=== PATIENT | male | born 1935 | race Caucasian/White ===

== ENCOUNTER 2020-06-26 07:22 | Emergency (ER) | payer SELFPAY | END 2020-06-26 07:34 | LOC: ER 07:32 | DX: Z53.21 Procedure and treatment not carried out due to patient leaving prior to being seen by health care provider (principal) ==

== ENCOUNTER 2024-03-31 15:58 | Observation (INO) | payer MEDICARE, OTHER, SELFPAY ==
[2024-03-31] VITALS (61 sets, daily range): BP systolic 114–188; BP diastolic 38–148; PULSE 51–88; RESP 9–33; TEMP 36.3–36.8; O2SAT 82–100
--- NOTE | 2024-03-31 15:45 | DI.CT_ITS ---
Exam(s) CT ABDOMEN PELVIS CTA EXAM: CT ABDOMEN PELVIS CTA CLINICAL HISTORY: ? mesenteric ischemia, ? incarce/rafael hernia. TECHNIQUE: Imaging Protocol: Axial CT angiography was performed with multi-slice acquisition and m ulti-planar and/or 3D reconstructions. CONTRAST MATERIAL: Intravenous: Omnipaque 350 Contrast volume:struc 80 ml Oral: no COMPARISON: No exams were available for comparison FINDINGS: Exam is limited by streak artifact relation to patient arm positioning at the sides. Vascular Structures: Celiac [place]:No evidence of stenosis. SMA: No evidence of stenosis. PADMA: Patent. Renal Arteries: No evidence of stenosis. There is a single renal artery perfusing each kidney. Aorta: No aneurysm. No dissection. No significant stenosis. Moderate to severe atherosclerotic plascencia ges. Mild mural thrombus. Iliac Arteries: Heavily calcified but no significant stenosis. Common Femoral Arteries: Multifocal calcifications. No significant stenosis. Soft Tissues:8 x 6.3 by 4.3 centimeter soft tissue mass noted in the lower right anterior abdominal w all musculature. It may arise from the anterior aspect of the bladder or musculature. Small fat conta ining left inguinal hernia. Right inguinal hernia containing but appears to be the appendix. Lung bases:Mass noted in the lingula measuring 2.6 x 2.1 cm. Dependent changes. Emphysematous herrera es. Pacemaker. Liver: Normal size. Normal density. Two liver cysts. No suspicious mass. Gallbladder and biliary tract: A few calcified gallstones are noted. No gallbladder wall thickening. No biliary dilation. Pancreas: Normal density, no abnormal calcifications or inflammatory process. Spleen: Normal. Kidneys: Normal size, contour and axis. No obstructive uropathy. Bilateral renal cysts. No suspicio us masses seen. Of few scattered nonobstructing stones. Adrenal glands: No masses seen. Bladder: Large invasive appearing mass which either arises from the anterior aspect of the bladder a nd extends into the rectus muscle. No evidence of calculi. Bowel: Loop of bowel through a defect between the right rectus abdominus and oblique muscles near the level of the umbilicus. This appears incarcerated. There is proximal dilatation of the small bowel a nd decompression of distal bowel loops. Peritoneal cavity: No ascites. No focal collection. No mesenteric inflammatory response. Bones: No acute findings. Degenerative changes and mild scoliosis. Lymph nodes: Mildly enlarged bilateral inguinal lymph nodes. Reproductive: Enlarged prostate, impressing on the base of the bladder. IMPRESSION: 1. Right size spigelian hernia with small knuckle of bowel extending through abdominal wall musculatu re causing small bowel obstruction. It appears incarcerated. 2. Large mass extending from the right rectus abdominus to the level of the anterior bladder with inv asive appearance. Origin is either much of mid meta metastatic, bladder wall or musculature. 3. 2.6 centimeter mass in the lingula. Primary versus metastatic disease. Findings called to Dr. Lopez of the emergency department. RADIATION DOSE DELIVERED: Total DLP DATA REPOSITORY: All CT scans at this facility are submitted to the National Radiology Data Registry (NRDR) Dose Index Registry (DIR) with the [employer] (ACR). RADIATION OPTIMIZATION: All CT scans at this facility use at least one of these dose optimization te chniques: automated exposure control; mA and/or kV adjustment per patient size (includes targeted exa ms where dose is matched to clinical indication); or iterative reconstruction.
[2024-03-31] MEDS: fentaNYL 100 MCG/2 ML VIAL IVP ×5 (16:06→18:04)
[2024-03-31 16:18] LABS: BE (Venous) -1 mmol/L (-2-3); HCO3 (Venous) 26 mmol/L (23-28); O2 Sat (Venous) 39 %; TCO2 (Venous) 25 mmol/L (24-29); pCO2 (Venous) 55 mmHg (41-51); pH (Venous) 7.28 (7.31-7.41); pO2 (Venous) 25 mmHg
[2024-03-31 16:22] LABS: Abs Immature Grans 0.01 10^3/uL (0.0-0.06); Absolute Basophil Count 0.03 10^3/uL (0.0-0.2); Absolute Eosinophil Count 0.15 10^3/uL (0.0-0.7); Absolute Monocyte Count 0.72 10^3/uL (0.1-0.8); Absolute Neutrophil Count 3.56 10^3/uL (1.2-6.7); Basophils % 0.4 %; Eosinophils % 2.1 %; HCT 35.8 % (40.0-50.0); HGB 11.3 g/dL (13.5-17.5); Immature Grans % 0.1 %; Lymphocytes % 36.8 %; MCH 32.8 pg (27.0-33.0); MCHC 31.6 % (32.0-36.0); MCV 104 fL (80-95); MPV 9.9 fL (8.0-11.0); Monocytes % 10.2 %; Neutrophils % 50.4 %; Platelet Count 237 10^3/uL (130-400); RBC 3.44 10^6/uL (4.36-5.78); RDW-SD 54.4 fL; WBC 7.07 10^3/uL (4.4-10.8)
[2024-03-31 16:27] LABS: Lactate 3.2 mmol/L (0.6-1.4)
[2024-03-31 16:41] LABS: ALT 16 U/L (16-63); AST 18 U/L (15-37); Albumin 3.5 g/dL (3.4-5.0); Alkaline Phosphatase 92 U/L (46-116); Anion Gap 9.6 mmol/L (3-11); BUN 18 mg/dL (7-18); Bilirubin, Total 0.56 mg/dL (0.2-1.0); CO2 27.4 mmol/L (21.0-32.0); CREATININE 1.5 mg/dL (0.70-1.30); Chloride 105 mmol/L (98-107); Estimated GFR 45.06 (mL/min/1.73m2); Glucose 178 mg/dL (74-106); Lipase 16 U/L (<78); Magnesium 1.8 mg/dL (1.8-2.4); Potassium 4.5 mmol/L (3.5-5.1); Sodium 142 mmol/L (136-145); Total Protein 7.5 g/dL (6.4-8.2)
[2024-03-31] MEDS: Normal Saline - Diluent 50 ML VIAL IJ (16:46)
[2024-03-31] MEDS: Omnipaque 350 MG/ML 100 ML BTL IJ (16:47)
[2024-03-31] MEDS: fentaNYL 100 MCG/2 ML VIAL 50 MCG IVP (17:09)
--- NOTE | 2024-03-31 17:13 | DI.VRAD_ITS ---
PROCEDURE INFORMATION: Exam: CTA Abdomen and Pelvis With Contrast Exam date and time: 03/31/2024 4:28 PM Age: 88 years old Clinical indication: Other: ? Mesenteric ischemia, ? incarce/rafael hernia; Patient HX: Known mets TECHNIQUE: Imaging protocol: Computed tomographic angiography of the abdomen and pelvis with contrast. Exam focused on the arteries. 3D rendering (Not supervised by radiologist): MIP and/or 3D reconstructed images were created by the technologist. Contrast material: OMNIPAQUE 350; Contrast volume: 80 ml; Contrast route: INTRAVENOUS (IV); COMPARISON: No relevant prior studies available. FINDINGS: Lungs: 3 cm microlobulated soft tissue mass in the lingula. Mild changes of emphysema and atelectasis noted in the bilateral lower lobes. Aorta: Dense atherosclerotic calcification noted in the aorta and iliac arteries. No evidence of aneurysm or dissection. Celiac trunk and mesenteric arteries: No occlusion or significant stenosis. Renal arteries: No occlusion or significant stenosis. Right iliac arteries: No occlusion or significant stenosis. Left iliac arteries: No occlusion or significant stenosis. Liver: A few scattered simple appearing cysts noted in the liver, the largest measuring 2.5 cm in the central portion of the liver. Liver otherwise unremarkable. Gallbladder and biliary ducts: A few small calcified gallstones noted in the gallbladder. No gallbladder wall thickening or pericholecystic fluid. No biliary ductal dilation. Pancreas: Unremarkable. No mass. No ductal dilation. Spleen: Unremarkable. No splenomegaly. Adrenal glands: Unremarkable. No mass. Kidneys and ureters: Scattered simple appearing cysts noted in both kidneys. No solid renal mass or hydronephrosis. Stomach and bowel: A few fluid-filled small bowel loops in the pelvis appear mildly dilated. Bowel-gas pattern otherwise unremarkable. No convincing evidence of bowel obstruction. Appendix: No evidence of appendicitis. Intraperitoneal space: Unremarkable. No free air. No significant fluid collection. Lymph nodes: Unremarkable. No enlarged lymph nodes. Urinary bladder: Homogeneous soft tissue mass is seen extending from the dome of the urinary bladder anterior into the lower rectus abdominis muscle sheath. Overall, this mass measures 6.4 x 6.3 x 4.7 cm. Adjacent localized wall thickening of the dome of the urinary bladder noted. 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 Reproductive: Unremarkable as visualized. Bones/joints: Moderate multilevel degenerative disc changes and facet arthropathy throughout the lower spine. No vertebral body compression. No acute fracture. Mild dextroscoliosis of the lumbar spine. Soft tissues: Otherwise unremarkable IMPRESSION: 1. Soft tissue mass measuring 6.4 cm extending from the anterior dome of the urinary bladder into the lower rectus abdominis muscle sheath. 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 Lingular 3 cm mass noted in the lower left lung. Given findings in the pelvis concerning for urachal carcinoma, this raises concern for metastatic lesion 3. Mild ileus pattern of small bowel in the pelvis. No convincing evidence of bowel obstruction 4. Incidentally noted cholelithiasis and other chronic appearing findings as noted Dictated and Authenticated by: Roberto Carrillo MD. Ordering:BARBARA Ybarra MD
--- NOTE | 2024-03-31 17:58 | W.ED.GENAD ---
Discharge Plan Disposition Patient Disposition: Admit to [facility] Condition: Improving Discharge Details Chief Complaint: Abd Prob Clinical Impression: Spigelian hernia Admit Date/Time: 03/31/24 19:46 Admit Provider: Erin Marr Attending Provider: Erin Marr Primary Care Provider: John Salazar ED Provider: Amada Lopez Discharge Data Discharge Date/Time-TO BE ENTERED AT DEPARTURE: 03/31/24 21:27 HPI General Mode of arrival: EMS. Date/Time Provider Initiated Documentation: 03/31/24 16:08. Limitations to Documentation: no limitations. Information obtained by: patient, family, EMS and old records reviewed. HPI Narrative: 88yo M with recently diagnosed lung cancer and bladder mass, known abdominal hernia, presenting with acute severe abdominal pain. Around 230 pm suddenly experienced sharp excruciating pain with associated nausea and vomiting. Initial history from EMS, no history able to be obtained from patient as he is moaning in pain. EMS unable to obtain BP or IV access prior to arrival due to patient's pain/agitation. Hx DM, HLD, known to have AICD (unclear why); palliative care note (only record available at [facility]) from earlier this week mentions 'arrhythmia'. Related Data Home Medications ?Medication ?Instructions ?Recorded ?Confirmed citalopram 10 mg tablet 10 mg PO DAILY PRN 03/28/24 03/31/24 ezetimibe 10 mg tablet 10 mg PO DAILY 03/28/24 03/31/24 furosemide 20 mg tablet 20 mg PO DAILY 03/28/24 03/31/24 glyburide 2.5 mg tablet 2.5 mg PO DAILY 03/28/24 03/31/24 metformin 1,000 mg tablet 1,000 mg PO DAILY 03/28/24 03/31/24 ondansetron HCl 4 mg tablet 8 mg PO Q8H PRN 03/28/24 03/31/24 sacubitril 24 mg-valsartan 26 mg 1 tab PO BID 03/28/24 03/31/24 tablet (Entresto) trazodone 100 mg tablet 100 mg PO BID 03/28/24 03/31/24 fentanyl 12 mcg/hr transdermal 1 patch transdermal Q72H #10 ea 03/29/24 03/31/24 patch gabapentin 400 mg capsule 300 mg PO TID 03/29/24 03/31/24 sennosides 8.6 mg tablet (senna) 8.6 - 17.2 mg (1 - 2 x 8.6 mg) PO 03/29/24 03/31/24 BID PRN constipation #60 tabs hydrocodone 5 mg-acetaminophen 325 1 tab PO Q6H PRN 03/31/24 03/31/24 mg tablet hydromorphone 2 mg tablet 2 mg PO HS PRN pain 03/31/24 03/31/24 oxycodone-acetaminophen 10 mg-325 1 tab PO .Q4-6H PRN 03/31/24 03/31/24 mg tablet Previous Rx's ?Medication ?Instructions ?Recorded fentanyl 12 mcg/hr transdermal 1 patch transdermal Q72H #10 ea 03/29/24 patch sennosides 8.6 mg tablet (senna) 8.6 - 17.2 mg (1 - 2 x 8.6 mg) PO 03/29/24 BID PRN constipation #60 tabs Allergies Allergy/AdvReac Type Severity Reaction Status Date / Time ciprofloxacin Allergy Headache Verified 03/31/24 16:15 General Stated Complaint: Abd Prob AMOR: 3 Review of Systems Narrative: UTO Exam Narrative Exam Narrative: General: Alert, screaming Head: Normocephalic, atraumatic Neck: Trachea midline, ?Neck supple. ENT: ?MMM.? Cardiac: ?RRR, no murmurs appreciated Resp: No respiratory distress. CTAB. Abd: ?Tense, guarding, will not allow exam. Slight erythema to right lateral abdomen and over right lateral chest wall, otherwise no skin changes. Extremities: ?No deformities.? No peripheral edema. Neurologic: Moves all extremities freely against gravity Course Vital Signs Vital signs: Vital Signs Temperature 36.8 C 03/31/24 15:51 Pulse 68 03/31/24 15:51 Respiratory Rate 22 03/31/24 15:51 Blood Pressure 169/89 H 03/31/24 15:51 Pulse Oximetry 98 03/31/24 15:51 Temperature 36.8 C 03/31/24 16:09 Temperature Source Temporal Artery Scan 03/31/24 16:09 Pulse 61 03/31/24 17:30 Pulse 69 03/31/24 16:50 Respiratory Rate 33 H 03/31/24 16:50 Respiratory Effort Normal 03/31/24 16:11 Blood Pressure 141/44 H 03/31/24 17:30 Blood Pressure Mean 77 03/31/24 17:30 Blood Pressure Position Supine 03/31/24 16:09 Pulse Oximetry 88 L 03/31/24 17:31 Oxygen Delivery Method Room Air 03/31/24 16:09 Oxygen Flow Rate 0 03/31/24 15:51 Pain Level 10 03/31/24 16:19 Lab/Test Results Lab/Test Results: Laboratory Tests Range/Units 03/31/24 16:08 WBC (4.4-10.8) 10^3/uL 7.07 RBC (4.36-5.78) 10^6/uL 3.44 L Hgb (13.5-17.5) g/dL 11.3 L Hct (40.0-50.0) % 35.8 L MCV (80-95) fL 104 H MCH (27.0-33.0) pg 32.8 MCHC (32.0-36.0) % 31.6 L RDW (11.8-14.1) % 14.0 Plt Count (130-400) 10^3/uL 237 MPV (8.0-11.0) fL 9.9 Immature Gran % % 0.1 Neutrophils % % 50.4 Lymphocytes % % 36.8 Monocytes % % 10.2 Eosinophils % % 2.1 Basophils % % 0.4 Nucleated RBC % (0.0-0.3) % 0.0 Absolute Neutrophils (1.2-6.7) 10^3/uL 3.56 Absolute Lymphocytes (1.2-3.4) 10^3/uL 2.60 Absolute Monocytes (0.1-0.8) 10^3/uL 0.72 Absolute Eosinophils (0.0-0.7) 10^3/uL 0.15 Absolute Basophils (0.0-0.2) 10^3/uL 0.03 VBG pH (7.31-7.41) 7.28 L VBG pCO2 (41-51) mmHg 55 H VBG pO2 mmHg 25 VBG HCO3 (23-28) mmol/L 26 VBG Total CO2 (24-29) mmol/L 25 VBG O2 Saturation % 39 VBG Base Excess (-2-3) mmol/L -1 VBG Lactate (0.6-1.4) mmol/L 3.2 H* Sodium (136-145) mmol/L 142 Potassium (3.5-5.1) mmol/L 4.5 Chloride (98-107) mmol/L 105 Carbon Dioxide (21.0-32.0) mmol/L 27.4 Anion Gap (3-11) mmol/L 9.6 BUN (7-18) mg/dL 18 Creatinine (0.70-1.30) mg/dL 1.5 H Est GFR (CKD-EPI 2020) (mL/min/1.73m2) 45.06 Glucose (74-106) mg/dL 178 H Calcium (8.5-10.1) mg/dL 9.0 Magnesium (1.8-2.4) mg/dL 1.8 Total Bilirubin (0.2-1.0) mg/dL 0.56 AST (15-37) U/L 18 ALT (16-63) U/L 16 Alkaline Phosphatase (46-116) U/L 92 Total Protein (6.4-8.2) g/dL 7.5 Albumin (3.4-5.0) g/dL 3.5 Lipase (<78) U/L 16 ABO/Rh O Positive Antibody Screen NEGATIVE Procedures Procedural Sedation Indication: other (hernia reduction) ASA Class: III Time of Last PO Intake: 12:00 Preparation: quality assurance monitor body applied, pulse oximeter, capnometry used, supplemental O2 applied, suction/airway equipment at bedside and IV secured IV Propofol dose (mg): 70 Patient Tolerated Procedure: well Complications: hypoventilation (jaw thrust, supplemental O2, briefly ventilated with BVM) Interventions: airway repositioned and assist by BVM Medical Decision Making 88yo M with recently diagnosed lung cancer and bladder mass, known abdominal hernia, presenting with acute severe abdominal pain. Around 230 pm suddenly experienced sharp excruciating pain with associated nausea and vomiting. Initial history from EMS, no history able to be obtained from patient as he is moaning in pain. EMS unable to obtain BP or IV access prior to arrival due to patient's pain/agitation. Hx DM, HLD, known to have AICD (unclear why); palliative care note (only record available at [facility]) from earlier this week mentions 'arrhythmia'. Hypertensive on arrival, vital signs otherwise reassuring. Screaming in pain, will not allow abdominal exam. High suspicion for acute intraabdominal process- bowel obstruction, strangulated hernia, mesenteric ischemia, bladder obstruction. IV access obtained and given 100mcg of fentanyl with slight improvement; multiple subsequent additional doses to allow patient to tolerate CT scan and eventually abdominal exam (total of 450mcg fentanyl). He was accompanied to CT by myself and RN for monitoring and additional doses of pain medication as needed. Labs reviewed as below, CBC reassuring with mild anemia and no leukocytosis, CMP with Cr of 1.5 (unknown baseline), normal LFTs and lipase, initial lactate 3.2, VBG with respiratory acidosis pH 7.28 and pCO2 55. Given 1L IVFB; repeat lactate improved to 0.7. CT abd/pelvis independently reviewed; radiology read below with spigelian hernia with small knuckle of bowel extending through abdominal wall musculature causing small bowel obstruction which appears incarcerated. Discussed with surgery on-call Dr. Carpio who will come to evaluate patient. After copious fentanyl pt with diminished pain, able to speak in full sentences, but continues to have spasmodic episodes of excrutiating pain. Now able to tolerate minimal abdominal exam and does have visible/palpable right abdominal wall hernia with no overylying skin changes, extremely tender to palpation over area of hernia, unable to tolerate any attempt at reduction. Dr. Carpio to bedside, plan for attempted reduction under procedural sedation at bedside. IV noted to have infiltrated with likely some amount of fentanyl in the subq space; will do propfol for sedation and given fentanyl infiltrate and high doses given prior will start with 0.5mg IV with additional doses as needed. Pre-op EKG with slight QT prolongation, will proceed with caution with total propofol dose. Given total of 70mg propofol with successful bedside reduction performed by Dr. Carpio; pt did have hypoventilation and required jaw thrust and brief period of BVM. O2 sat 100% throughout. Subsequently recovered well, awake/alert, pain entirely resolved. Accepted to surgical service for observation and transferred to the floor. Medical Records Medical records reviewed: Yes I reviewed the patient's medical records. Imaging Data Radiologic Study: Imaging: CT Scan Radiologist's impression: MPRESSION: 1. Right size spigelian hernia with small knuckle of bowel extending through abdominal wall musculature causing small bowel obstruction. It appears incarcerated. 2. Large mass extending from the right rectus abdominus to the level of the anterior bladder with invasive appearance. Origin is either much of mid meta metastatic, bladder wall or musculature. 3. 2.6 centimeter mass in the lingula. Primary versus metastatic disease. Lab Data Lab results reviewed: Yes I reviewed the patient's lab results. Labs: Laboratory Tests Range/Units 03/31/24 03/31/24 16:08 18:53 WBC (4.4-10.8) 10^3/uL 7.07 RBC (4.36-5.78) 10^6/uL 3.44 L Hgb (13.5-17.5) g/dL 11.3 L Hct (40.0-50.0) % 35.8 L MCV (80-95) fL 104 H MCH (27.0-33.0) pg 32.8 MCHC (32.0-36.0) % 31.6 L RDW (11.8-14.1) % 14.0 Plt Count (130-400) 10^3/uL 237 MPV (8.0-11.0) fL 9.9 Immature Gran % % 0.1 Neutrophils % % 50.4 Lymphocytes % % 36.8 Monocytes % % 10.2 Eosinophils % % 2.1 Basophils % % 0.4 Nucleated RBC % (0.0-0.3) % 0.0 Absolute Neutrophils (1.2-6.7) 10^3/uL 3.56 Absolute Lymphocytes (1.2-3.4) 10^3/uL 2.60 Absolute Monocytes (0.1-0.8) 10^3/uL 0.72 Absolute Eosinophils (0.0-0.7) 10^3/uL 0.15 Absolute Basophils (0.0-0.2) 10^3/uL 0.03 VBG pH (7.31-7.41) 7.28 L VBG pCO2 (41-51) mmHg 55 H VBG pO2 mmHg 25 VBG HCO3 (23-28) mmol/L 26 VBG Total CO2 (24-29) mmol/L 25 VBG O2 Saturation % 39 VBG Base Excess (-2-3) mmol/L -1 VBG Lactate (0.6-1.4) mmol/L 3.2 H* 0.9 Sodium (136-145) mmol/L 142 Potassium (3.5-5.1) mmol/L 4.5 Chloride (98-107) mmol/L 105 Carbon Dioxide (21.0-32.0) mmol/L 27.4 Anion Gap (3-11) mmol/L 9.6 BUN (7-18) mg/dL 18 Creatinine (0.70-1.30) mg/dL 1.5 H Est GFR (CKD-EPI 2020) (mL/min/1.73m2) 45.06 Glucose (74-106) mg/dL 178 H Calcium (8.5-10.1) mg/dL 9.0 Magnesium (1.8-2.4) mg/dL 1.8 Total Bilirubin (0.2-1.0) mg/dL 0.56 AST (15-37) U/L 18 ALT (16-63) U/L 16 Alkaline Phosphatase (46-116) U/L 92 Total Protein (6.4-8.2) g/dL 7.5 Albumin (3.4-5.0) g/dL 3.5 Lipase (<78) U/L 16 ABO/Rh O Positive Antibody Screen NEGATIVE Quality:[facility] Health Related Social Needs: No Data to Display Critical Care Time Critical Care Time Total Critical Care Time: 34 Attestation: Due to a high probability of clinically significant, life threatening deterioration, the patient required my highest level of preparedness to intervene emergently and I personally spent this critical care time directly and personally managing the patient. This critical care time included obtaining a history; examining the patient; pulse oximetry; ordering and review of studies; arranging urgent treatment with development of a management plan; evaluation of patient's response to treatment; frequent reassessment; and, discussions with other providers. This critical care time was performed to assess and manage the high probability of imminent, life-threatening deterioration that could result in multi-organ failure. It was exclusive of separately billable procedures and treating other patients? 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
[2024-03-31] MEDS: Normal Saline 1,000 ML 1000 ML IV (18:11)
[2024-03-31] MEDS: ACETAMINOPHEN 1,000 MG/100 ML BAG 400 MG IVPB (18:16)
--- NOTE | 2024-03-31 18:45 | RT.EKG_ITS ---
APPROVED REPORT Exam: Resting ECG Reason for Exam: pre procedure Patient Location: E HR:65 bpm ECG Measurements Heart Rate 65 AXIS MO 190 P 67 QRSd 95 QRS 42 QT 457 T 55 QTc 475 Conclusion sinus rythym bordlerline prolonged QTc no ST segement or T wave abnormalities to suggest occlusive HI
[2024-03-31 18:56] LABS: Lactate 0.9 mmol/L (0.6-1.4)
[2024-03-31] MEDS: Propofol 200 MG/20 ML VIAL 70 MG IVP (19:14)
--- NOTE | 2024-03-31 19:27 | RESPIRATORY ---
Applied 4L/min nasal prior to procedure and then manual ventilated with ambu bag without complication on oxygen flow of 15L/min to relief a short apnea episode during conscious sedation. Vital sign remained acceptable throughout positive ventilation. O2 weaned down to RA post procedure when pt. became more alert or awake.
--- NOTE | 2024-03-31 19:47 | W.PM.HP.N ---
Date of service: 03/31/24 Time of Service: 20:02 Assessment and Plan Assessment and plan (1) Spigelian hernia: Status: Acute Assessment and plan: 88-year-old male who has a known spigelian hernia. This is the second time in about 2 months that it has become incarcerated with concern for strangulation. Fortunately with propofol sedation administered by the emergency room physician, I was able to reduce the hernia and resolve his pain. Given that it was incarcerated for 5 hours, I have reasonable concern for ischemia of the bowel. I am going to admit the patient to the surgical service for observation overnight just to ensure that he has no changes in his abdominal exam. Plan was explained to the patient and his family and everybody was on board. I do think that it would be reasonable to consider elective repair of the hernia given the 2 complicated episodes that he has had. Given his metastatic disease, this would best be planned after an in-depth conversation about the risks and the benefits, and on an elective basis. Patient and the family expressed understanding. We will try to arrange short-term follow-up. ? Sips of clears tonight, clear liquid diet in a.m. ? IV fluids ? IV pain and nausea medications as needed ? Sliding scale insulin ? Hold home medications for now until taking p.o. ? Monitor vital signs overnight History of Present Illness History of Present Illness Chief Complaint: Right lower quadrant abdominal pain Narrative: Patient is an 88-year-old male who presents to the emergency room. He had sudden onset of abdominal pain in the right side of the abdomen around 2 PM. He reports that he had similar pain about 2 months ago. At that time he went to the emergency room where he was living in [place]. After significant amount of pain they were able to reduce hernia and he was discharged home. Today he is writhing in pain. He has received multiple doses of IV fentanyl without much relief. Labs are remarkable for some anemia with a hemoglobin of 11, elevated lactate of 3.7. White blood cell count is within normal limits. Electrolytes are mostly within normal limits. He had a CT scan of the abdomen that shows an incarcerated loop of bowel and a right spigelian hernia. General surgery was consulted. Of note, patient has diagnosis of bladder cancer, as well as a lung mass. His family reports that he has had 2 urology consultation and has been recommended to move into palliative care. Unclear if he has 2 primaries or if the lung lesion is a metastatic lesion from the bladder. Patient typically resides in [place] but has recently moved back up to [place]. He was at [facility] seeing urology yesterday. He has multiple family members with him today. 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 Surgical History (Updated 03/29/24 @ 14:59 by Kira Logan RN) H/O shoulder replacement History of transurethral resection of bladder tumor (TURBT) 04/07/2023 Social History (Updated 03/29/24 @ 14:59 by Kira Logan RN) Smoking/Tobacco Use Status: Current-Occasional Smoking risk assessment performed?: Yes Alcohol Intake: never Drug use: Never Meds Allergies and Home Medications Allergies Allergy/AdvReac Type Severity Reaction Status Date / Time ciprofloxacin Allergy Headache Verified 03/31/24 16:15 Home Medications ?Medication ?Instructions ?Recorded ?Confirmed ?Type citalopram 10 mg tablet 10 mg PO DAILY PRN 03/28/24 03/31/24 History ezetimibe 10 mg tablet 10 mg PO DAILY 03/28/24 03/31/24 History furosemide 20 mg tablet 20 mg PO DAILY 03/28/24 03/31/24 History glyburide 2.5 mg tablet 2.5 mg PO DAILY 03/28/24 03/31/24 History metformin 1,000 mg tablet 1,000 mg PO DAILY 03/28/24 03/31/24 History ondansetron HCl 4 mg tablet 8 mg PO Q8H PRN 03/28/24 03/31/24 History sacubitril 24 mg-valsartan 26 mg 1 tab PO BID 03/28/24 03/31/24 History tablet (Entresto) trazodone 100 mg tablet 100 mg PO BID 03/28/24 03/31/24 History fentanyl 12 mcg/hr transdermal 1 patch transdermal Q72H #10 ea 03/29/24 03/31/24 Rx patch gabapentin 400 mg capsule 300 mg PO TID 03/29/24 03/31/24 History sennosides 8.6 mg tablet (senna) 8.6 - 17.2 mg (1 - 2 x 8.6 mg) PO 03/29/24 03/31/24 Rx BID PRN constipation #60 tabs hydrocodone 5 mg-acetaminophen 325 1 tab PO Q6H PRN 03/31/24 03/31/24 History mg tablet hydromorphone 2 mg tablet 2 mg PO HS PRN pain 03/31/24 03/31/24 History oxycodone-acetaminophen 10 mg-325 1 tab PO .Q4-6H PRN 03/31/24 03/31/24 History mg tablet Exam Narrative Exam Narrative: General?elderly thin male lying on the emergency room stretcher in significant discomfort. At times he is writhing around in pain. He seems to be alert and oriented. HEENT?normocephalic, atraumatic. Sclera anicteric. Mucous membranes dry. Neck?supple, no masses Respiratory?unlabored, no use of accessory muscles Abdomen?soft, nondistended, but exquisitely tender to palpation over a small lump in the right abdomen just below the level of the umbilicus. Unable to tolerate more than light touch in this area without writhing around in pain and having tremors Extremities?moves all extremities, no gross edema Psych?oriented to place and people in the room, and time. Results Labs 03/31/24 16:08 03/31/24 16:08 Labs: Laboratory Results - last 24 hr 03/31/24 03/31/24 16:08 18:53 WBC 7.07 RBC 3.44 L Hgb 11.3 L Hct 35.8 L MCV 104 H MCH 32.8 MCHC 31.6 L RDW 14.0 Plt Count 237 MPV 9.9 Immature Gran % 0.1 Neutrophils % 50.4 Lymphocytes % 36.8 Monocytes % 10.2 Eosinophils % 2.1 Basophils % 0.4 Nucleated RBC % 0.0 Absolute Neutrophils 3.56 Absolute Lymphocytes 2.60 Absolute Monocytes 0.72 Absolute Eosinophils 0.15 Absolute Basophils 0.03 VBG pH 7.28 L VBG pCO2 55 H VBG pO2 25 VBG HCO3 26 VBG Total CO2 25 VBG O2 Saturation 39 VBG Base Excess -1 VBG Lactate 3.2 H* 0.9 Sodium 142 Potassium 4.5 Chloride 105 Carbon Dioxide 27.4 Anion Gap 9.6 BUN 18 Creatinine 1.5 H Est GFR (CKD-EPI 2020) 45.06 Glucose 178 H Calcium 9.0 Magnesium 1.8 Total Bilirubin 0.56 AST 18 ALT 16 Alkaline Phosphatase 92 Total Protein 7.5 Albumin 3.5 Lipase 16 ABO/Rh O Positive Antibody Screen NEGATIVE Last Vital Signs Temp 36.8 C 03/31/24 16:09 Pulse 60 03/31/24 19:16 Resp 15 03/31/24 19:20 BP 122/62 03/31/24 19:16 Pulse Ox 99 03/31/24 19:20 Procedures Other Procedure Description/Findings: After obtaining informed consent for procedural sedation, propofol was administered by the emergency room physician, Dr. Amada Lopez. Once patient was deeply sedated and comfortable, I was able to palpate the small lump in the right lower abdomen. With only a moderate amount of pressure I was able to reduce the hernia. I then placed the ultrasound and evaluated the abdominal wall in the area to confirm that the hernia had been reduced. I was not able to see any peritoneum bulging into the muscle tissue. As patient began to wake up, I palpated the abdomen again. He did not respond with any signs of discomfort. Once he was completely awake, he confirmed that he no longer had any pain in the right lower abdomen. Time Spent Time spent with Patient: 55-74 minutes Time was spent: preparing to see the patient(eg.review tests), obtaining and/or reviewing separately otained hiistory, ordering medications,tests, procedures, referring, communicating with other health wild animal caretaker, indepentently interpreting results, counseling the patient and care coordination
--- NOTE | 2024-03-31 21:05 | W.PC.ACHO ---
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 Hyperlipidemia Diabetes NSCLC of right lung Pelvic mass Malignant neoplasm metastatic from bladder (Last Updated 03/29/24 @ 14:59 by Kira Logan RN) H/O shoulder replacement History of transurethral resection of bladder tumor (TURBT) Most Recent Vital Signs Temperature 36.8 C 03/31/24 16:09 Temperature Source Temporal Artery Scan 03/31/24 16:09 Pulse 52 L 03/31/24 20:33 Pulse 59 L 03/31/24 20:33 Respiratory Rate 14 03/31/24 20:33 Respiratory Effort Normal 03/31/24 16:11 Blood Pressure 125/44 L 03/31/24 20:33 Blood Pressure Mean 72 03/31/24 20:33 Blood Pressure Position Supine 03/31/24 16:09 Pulse Oximetry 95 03/31/24 20:33 Respiratory End-tidal CO2 49 03/31/24 20:32 Oxygen Delivery Method Room Air 03/31/24 19:18 Oxygen Flow Rate 0 03/31/24 19:18 Pain Level 10 03/31/24 16:19 Allergies ciprofloxacin Allergy (Verified 03/31/24 16:15) Headache Severe Precautions Isolation Standard precaution 03/31/24 16:11 Active Medications Generic Name Dose Route Start Last Admin Trade Name Ezekielq PRN Reason Stop Dose Admin Fentanyl 100 mcg 03/31/24 15:58 03/31/24 16:06 Fentanyl 100 Mcg/2 Ml Vial IVP 100 mcg Q2H PRN PRN Administration Iohexol 100 ml 03/31/24 17:00 03/31/24 16:47 Omnipaque 350 Mg/Ml 100 Ml Btl IJ 04/30/24 23:59 100 ml DIRECTED RAN Administration Sodium Chloride 50 ml 03/31/24 16:45 03/31/24 16:46 Normal Saline - Diluent 50 Ml Vial IJ 50 ml .FOR DI USE RAN Administration IV IV Catheter Type [Right Peripheral IV Forearm] IV Catheter Type [Left Saline Lock Antecubital] IV Catheter Type [Right Diffusics Antecubital] IV Catheter Gauge [Right 18 Forearm] IV Catheter Gauge [Left 18 Antecubital] IV Catheter Gauge [Right 20 Antecubital] Diagnostics 03/31/24 03/31/24 Range/Units 18:53 16:08 WBC 7.07 (4.4-10.8) 10^3/uL RBC 3.44 L (4.36-5.78) 10^6/uL Hgb 11.3 L (13.5-17.5) g/dL Hct 35.8 L (40.0-50.0) % MCV 104 H (80-95) fL MCH 32.8 (27.0-33.0) pg MCHC 31.6 L (32.0-36.0) % RDW 14.0 (11.8-14.1) % Plt Count 237 (130-400) 10^3/uL MPV 9.9 (8.0-11.0) fL Immature Gran % 0.1 % Neutrophils % 50.4 % Lymphocytes % 36.8 % Monocytes % 10.2 % Eosinophils % 2.1 % Basophils % 0.4 % Nucleated RBC % 0.0 (0.0-0.3) % Absolute Neutrophils 3.56 (1.2-6.7) 10^3/uL Absolute Lymphocytes 2.60 (1.2-3.4) 10^3/uL Absolute Monocytes 0.72 (0.1-0.8) 10^3/uL Absolute Eosinophils 0.15 (0.0-0.7) 10^3/uL Absolute Basophils 0.03 (0.0-0.2) 10^3/uL VBG pH 7.28 L (7.31-7.41) VBG pCO2 55 H (41-51) mmHg VBG pO2 25 mmHg VBG HCO3 26 (23-28) mmol/L VBG Total CO2 25 (24-29) mmol/L VBG O2 Saturation 39 % VBG Base Excess -1 (-2-3) mmol/L VBG Lactate 0.9 3.2 H* (0.6-1.4) mmol/L Sodium 142 (136-145) mmol/L Potassium 4.5 (3.5-5.1) mmol/L Chloride 105 (98-107) mmol/L Carbon Dioxide 27.4 (21.0-32.0) mmol/L Anion Gap 9.6 (3-11) mmol/L BUN 18 (7-18) mg/dL Creatinine 1.5 H (0.70-1.30) mg/dL Est GFR (CKD-EPI 2020) 45.06 (mL/min/1.73m2) Glucose 178 H (74-106) mg/dL Calcium 9.0 (8.5-10.1) mg/dL Magnesium 1.8 (1.8-2.4) mg/dL Total Bilirubin 0.56 (0.2-1.0) mg/dL AST 18 (15-37) U/L ALT 16 (16-63) U/L Alkaline Phosphatase 92 (46-116) U/L Total Protein 7.5 (6.4-8.2) g/dL Albumin 3.5 (3.4-5.0) g/dL Lipase 16 (<78) U/L ABO/Rh O Positive Antibody Screen NEGATIVE Intake and Output - 24 Hour Total 03/31/24 15:48 thru 03/31/24 15:51 Weight 74.1 kg Problems (Last Updated 03/29/24 @ 14:59 by Kira Logan RN) Spigelian hernia (Acute) Notes 03/31/24 19:27 Respiratory by Avel Burris Applied 4L/min nasal prior to procedure and then manual ventilated with ambu bag without complication on oxygen flow of 15L/min to relief a short apnea episode during conscious sedation. Vital sign remained acceptable throughout positive ventilation. O2 weaned down to RA post procedure when pt. became more alert or awake. Initialized on 03/31/24 19:27 - END OF NOTE v v v v v v v v v Sending and/or Receiving Nurses: Please use comment section below to note any information pertinent to the patient hand-off not included above. Information / Comments: Incarcerated bowel, through hernia, retractable pain. Incarcerated bowel reduced in ED, pain subsided.Admit to med/surg for obs. No cad pump. Recieved report at 2100. Report received from: Lia Michel RN
[2024-03-31] MEDS: Lactated Ringers 1,000 ML 75 ML IV (21:41)
[2024-03-31] MEDS: fentaNYL 12 MCG PATCH TD (21:45)
[2024-03-31] MEDS: Normal Saline Flush 10 ML SYR IVP (21:56)
[2024-04-01 03:00] VITALS: BP 131/59; PULSE 63; RESP 14; TEMP 36.8; O2SAT 96
[2024-04-01 07:32] VITALS: BP 145/66; PULSE 64; RESP 18; TEMP 37.1; O2SAT 96
--- NOTE | 2024-04-01 09:28 | PDOC.CMIN ---
Date of service: 04/01/24 Time of Service: 09:30 Care Management Initial Assmt Initial Assessment Reason for Hospitalization: hernia pain Functional Status/Living Situation Town of Residence: [place] Significant Other/Family: Local Natural Supports: daughter, Eliane son, Venkatesh Employment Status: Retired Instrumental Activities of Daily Living (ADLs): Independent Medications Medication Management: No Issues/Barriers identified Advance Directives Advance Directives: Do you have an Advance Directive: Y 03/28/24 09:46 AD On File at [facility]: N 03/28/24 09:46 Date Asked 03/31/24 03/31/24 16:14 AD Date Reviewed COLST On File at [facility] No 03/31/24 16:14 COLST Date Scanned Code Status Resuscitation Status DNR/DNI Insurance Coverage/Financial Issues Insurance: [facility] Care Team Visit Care Team Role Provider Type John Salazar Primary Care Provider MD [facility] STAFF PHYSICIAN Amada Lopez MD Emergency Provider [facility]YSIC[facility] Attending Provider Discharge Potential Discharge Needs: Surgical F/U Appt Anticipated Barriers to Discharge: None Identified Patient/Family Education Needs: Review discharge instructions, discuss Ask Me Three Transportation: Private vehicle Plan: Anticipate Luc will return home once medically cleared. His family will drive him home via private vehicle. He will follow up with surgical services and his discharge plan of care. CM will continue to follow. 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 Surgical History (Updated 03/29/24 @ 14:59 by Kira Logan RN) H/O shoulder replacement History of transurethral resection of bladder tumor (TURBT) 04/07/2023 Social History (Updated 03/29/24 @ 14:59 by Kira Logan RN) Smoking/Tobacco Use Status: Current-Occasional Smoking risk assessment performed?: Yes Alcohol Intake: never Drug use: Never Housing: house [facility](Care Management) Screening Will the Patient Participate in the Screening?: Yes Do you worry about having a steady place to live?: no Problems where you live: no known problems In the past 12 months, have you had to go without electric, gas, oil or water in your home?: no Have you or anyone in your house had to go without enough food to eat?: no Has lack of transportation kept you from medical appointments or from doing things needed for daily living?: no Has anyone in your support network made you feel unsafe for any reason?: no
--- NOTE | 2024-04-01 10:50 | W.PM.DS.N ---
Date of service: 04/01/24 Time of Service: 10:51 DS: Diagnosis Discharge Diagnosis (1) Spigelian hernia: Status: Acute Discharge Plan Disposition Patient Disposition: Home Condition: Fair Discharge Details Reason For Visit: CALEX/hernia pain Admit Date/Time: 03/31/24 19:46 Admit Provider: Erin Marr Attending Provider: Erin Marr Primary Care Provider: John Salazar [facility] Hospital Course Hospital Course: Patient is a 88-year-old male who presented to the emergency room with acute onset of abdominal pain yesterday afternoon/evening. He was found to have frustrated right spigelian hernia. He was provided with deep sedation in the emergency room and is admitted to reduce hernia. His acute pain resolved immediately. He was admitted overnight for observation for concerns of ischemia to the small bowel that was incarcerated. He has done well overnight. His only complaint today is left lower quadrant abdominal pain which is related to his known tumor and is his baseline. He has been urinating a lot. He has tolerated small amounts of clear liquids. He is hungry. Vital signs stable. This morning he is out of bed and sitting in the chair. He is alert and oriented. His daughter is with him. He has no right-sided abdominal pain. Abdomen is soft, nontender, nondistended. We will get him a sandwich for lunch per his request and discharge to home. Home Meds and New Rx's Prescriptions: No Action citalopram 10 mg tablet 10 mg PO DAILY PRN ondansetron HCl 4 mg tablet 8 mg PO Q8H PRN sacubitril-valsartan [Entresto] 24-26 mg tablet 1 tab PO BID glyburide 2.5 mg tablet 2.5 mg PO DAILY metformin 1,000 mg tablet 1,000 mg PO DAILY furosemide 20 mg tablet 20 mg PO DAILY trazodone 100 mg tablet 100 mg PO BID ezetimibe 10 mg tablet 10 mg PO DAILY gabapentin 400 mg capsule 300 mg PO TID fentanyl 12 mcg/hr patch 72 hour 1 patch transdermal Q72H MDD 1 patch Qty: 10 0RF Rx Instructions: for cancer related pain sennosides [senna] 8.6 mg tablet 8.6 - 17.2 mg PO BID PRN (Reason: constipation) Qty: 60 0RF hydrocodone-acetaminophen 5-325 mg tablet 1 tab PO Q6H PRN oxycodone-acetaminophen 10-325 mg tablet 1 tab PO .Q4-6H PRN hydromorphone 2 mg tablet 2 mg PO HS MDD 6 tabs PRN (Reason: pain) Rx Instructions: for cancer related pain Discharge Instructions Additional Instructions: Resume usual diet. No strenuous activity until seen in follow up. I will arrange follow up in the general surgery clinic in next 1-[address] Rice and Dr De Dios. He should get a call from the office in next 1-2 days. Resume all palliative care with outpatient services that are already in place. Activity:: no strenuous activity Equipment/Supplies:: No Equipment Needed Diet:: As Tolerated Discharge Orders Discharge Orders: Discharge Order (Routine); Ordered 04/01/24 Ordered By: Erin Carpio [facility] DS: Summary Time Spent with Patient providing and/or coordinating discharge services: Greater than 30 minutes Status at Discharge Functional status at discharge: independent ambulation Overall status at discharge: patient is back to baseline Mental Status: mental status grossly normal Speech and Movement: speech and movement normal Mood: congruent mood Affect: normal affect Quality:SDOH Health Related Social Needs: No Data to Display Exam Psych Mental Status: mental status grossly normal Speech and Movement: speech and movement normal Mood: congruent mood Affect: normal affect DS: Data Vitals/I&O Vitals and I&O: Vital Signs Temperature 37.1 C 04/01/24 07:32 Temperature Source Tympanic 04/01/24 07:32 Pulse 64 04/01/24 07:32 Pulse Rhythm Regular 03/31/24 21:14 Pulse 52 L 03/31/24 20:50 Respiratory Rate 18 04/01/24 07:32 Respiratory Effort Normal 03/31/24 21:14 Respiratory Depth Normal 03/31/24 21:14 Respiratory Pattern Normal 03/31/24 21:14 Blood Pressure 145/66 H 04/01/24 07:32 Blood Pressure Mean 74 03/31/24 20:46 Blood Pressure Position Supine 03/31/24 16:09 Pulse Oximetry 96 04/01/24 07:32 Respiratory End-tidal CO2 49 03/31/24 20:32 Oxygen Delivery Method Room Air 04/01/24 07:32 Oxygen Flow Rate 0 04/01/24 07:32 Pain Level 6 04/01/24 07:32 Comment Pt requested warm blankets. COmfortable in bed 03/31/24 21:14 Intake & Output 03/31/24 03/31/24 04/01/24 11:59 23:59 11:59 Intake Total 1010 / 1010 978 / 978 Output Total 275 / 275 1550 / 1550 Balance 735 / 735 -572 / -572 Weight 74.142 kg Intake: IV 1010 / 1010 978 / 978 Output: Urine 275 / 275 1550 / 1550 Other: Urine Color Yellow Yellow Urine Appearance Clear Clear Urine Odor Normal None Data Completed and Pending Labs on day of discharge: Labs from last 24 hours 03/31/24 03/31/24 18:53 16:08 WBC 7.07 RBC 3.44 L Hgb 11.3 L Hct 35.8 L MCV 104 H MCH 32.8 MCHC 31.6 L RDW 14.0 Plt Count 237 MPV 9.9 Immature Gran % 0.1 Neutrophils % 50.4 Lymphocytes % 36.8 Monocytes % 10.2 Eosinophils % 2.1 Basophils % 0.4 Nucleated RBC % 0.0 Absolute Neutrophils 3.56 Absolute Lymphocytes 2.60 Absolute Monocytes 0.72 Absolute Eosinophils 0.15 Absolute Basophils 0.03 VBG pH 7.28 L VBG pCO2 55 H VBG pO2 25 VBG HCO3 26 VBG Total CO2 25 VBG O2 Saturation 39 VBG Base Excess -1 VBG Lactate 0.9 3.2 H* Sodium 142 Potassium 4.5 Chloride 105 Carbon Dioxide 27.4 Anion Gap 9.6 BUN 18 Creatinine 1.5 H Est GFR (CKD-EPI 2020) 45.06 Glucose 178 H Calcium 9.0 Magnesium 1.8 Total Bilirubin 0.56 AST 18 ALT 16 Alkaline Phosphatase 92 Total Protein 7.5 Albumin 3.5 Lipase 16 ABO/Rh O Positive Antibody Screen NEGATIVE 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
--- NOTE | 2024-04-04 13:15 | NUR.NOTE ---
On March 31, 2024 at appx 1855, pt consented to a concious sedation procedure to attempt to reduce an incarcerated hernia. Dr. Jorge Lopez performed a procedural time out confirming consent, patient, intended procdure and outcomes. at 1914 70 mcg of propofol was pushed by Dr. Jorge Lopez with this marine underwriter ( Nargis Michel RN) and RT (Krista) in attendance. vital signs remained stable and were cycled every 5 mins.The hernia reduction was performed by Dr. Plummer and assessed with bedside ultrasound. Pt experienced some apnea requiring the Jaw thrust maneuver and some bagging with BVM. The entire procedure ended at 0. Pt awoke from sedation, maintaining his own airway and offered no complaints. ETCO2 was continuously monitored. no further intervention was required. Pt was admitted observation to the MS floor.
== END 2024-04-01 11:35 | disposition home or self-care (01) ==
LOC: ER 20:53 → MS 21:07
PROVIDERS: Admitting Provider Surgery; Emergency Provider Student in an Organized Health Care Education/Training Program; PCP Family Medicine; Visit Provider Surgery
DX: K43.6 Other and unspecified ventral hernia with obstruction, without gangrene (principal); C67.9 Malignant neoplasm of bladder, unspecified; Z95.810 Presence of automatic (implantable) cardiac defibrillator; C34.91 Malignant neoplasm of unspecified part of right bronchus or lung; E78.5 Hyperlipidemia, unspecified; E11.40 Type 2 diabetes mellitus with diabetic neuropathy, unspecified; R19.00 Intra-abdominal and pelvic swelling, mass and lump, unspecified site; Z79.899 Other long term (current) drug therapy; Z79.84 Long term (current) use of oral hypoglycemic drugs
CPT/HCPCS: 00123; 80053; 82805; 83690; 86850; 86900; 86901; 93005; 96361; 96374; 96375; 96376; 99223; 99239; 99291; 74174; 83605; 83735; 85025; 93010; G0378; J0131; J1815; J2704; J3010; J3490

== ENCOUNTER → 2024-04-03 09:29 | Outpatient (BNVA) | payer MEDICARE, OTHER, SELFPAY | PROVIDERS: Visit Provider Surgery | DX: K43.9 Ventral hernia without obstruction or gangrene (principal) | CPT/HCPCS: 99214 ==

== ENCOUNTER 2024-04-04 01:35 | Outpatient (CLI) | payer MEDICARE, OTHER, SELFPAY ==
--- NOTE | 2024-04-04 14:30 | DI.US_ITS ---
APPROVED REPORT EXAM: Comprehensive 2D, Doppler, and color-flow Echocardiogram Patient Location: Out-Patient Operational Meteorologist: Betty Ferrer RDCS (AE) Indications: Preoperative risk stratification, H/O A fib with CAD Other Information Study Quality: Adequate Conclusion Normal left ventricular wall thickness. Mildly dilated left ventricle. Ejection fraction is 45 to 5 0%. There is inferior hypokinesis Normal right ventricular size and function Device lead noted in the right heart Normal right atrial size. Mildly enlarged left atrium The aortic valve is mildly sclerotic and trileaflet with mild regurgitation Mild mitral annular calcification. There is mild to moderate eccentric mitral regurgitation Mild tricuspid regurgitation. Estimated right ventricular systolic pressure is 20 mmHg Wall motion Left Ventricle Left ventricle is mildly dilated. Left ventricular systolic function is mildly decreased. There is no rmal left ventricular wall thickness. Regional wall motion abnormalities are noted. There is no ventr icular septal defect visualized. LVEF is 45-50%. Right Ventricle Right ventricle is grossly normal in size. Right ventricular systolic function is grossly normal. Dev ice lead is present in the right ventricle. Defibrilator Atria Left atrium is mildly dilated. The right atrium size is normal. The interatrial septum is intact wit h no evidence for an atrial septal defect. Aortic Valve The aortic valve is mildly sclerotic Aortic valve is trileaflet. There is no aortic valvular stenosis . Mild aortic regurgitation. Mitral Valve Mild mitral annular calcification. No evidence of mitral valve stenosis. Mild to moderate mitral reg urgitation. Mitral regurgitation jet is eccentrically directed. Tricuspid Valve The tricuspid valve is normal in structure. There is no tricuspid valve stenosis. Mild tricuspid regu rgitation. The RVSP is 20.5 mmHg. Pulmonic Valve The pulmonary valve is normal in structure. There is no pulmonic valvular stenosis. Trace pulmonic re gurgitation. Great Vessels The aortic root is normal in size. The ascending aorta is mildly dilated. Aortic arch is not well vis ualized. IVC is normal in size and collapses >50% with inspiration. Pericardium There is no pericardial effusion. 2D Dimensions IVSD d PLAX 0.80 cm M: 0.6-1.2 Ao Root d 2.99 cm M: 3.1 - 3.7 LVPW d PLAX 0.84 cm M: 0.6 - 1.2 Ao Asc Diam d 3.52 cm M: 2.6 - 3.4 LVID d PLAX 6.10 cm M: 4.2 - 5.8 LV EF Teichholz 28.1 % LV EDV (Teich) 187.0 mL M-Mode TAPSE 2.50 cm (M/F) >1.7 Auto EF LV EDV A4C 159.7 mL LV EDV A2C 166.0 mL LV EDV BP 164.3 mL LV ESV A4C 83.3 mL LV ESV A2C 92.0 mL LV ESV BP 89.3 mL LVEF(%) A4C 47.8 % LVEF(%) A2C 44.6 % LVEF(%) BP 45.7 % LV SV A4C 76.4 ml LV SV A2C 74.0 ml LV SV BP 75.0 ml LV CO A4C 4.8 L/min LV CO A2C 4.9 L/min LV CO BP 4.8 L/min HR A4C 62.18 BPM HR A2C 66.55 BPM LV EDV Index (BP) LV Strain Long Pk Overal Avg (s) 15.89 LA Volume LA Length A4C 5.6 cm LA Length A2C 5.4 cm LA Area A4C s 21.48 cm2 LA Area A2C s 22.06 cm2 LA Vol A4C A-L 70.40 mL LA Vol A2C A-L 76.65 mL LA Vol Biplane A-L 74.6 mL LA Vol/BSA A4C A-L LA Vol/BSA A2C A-L LA Vol/BSA BP A-L 38.1 mL/m2 LA Vol A4C MOD 62.8 mL LA Vol A2C MOD 72.3 mL LA Vol BP MOD 68.1 mL RA Volume RA Area A4C 14.5 cm2 RA ESV A4C (A-L) 37.5mL RA Vol/BSA A4C A-L RA Length A4C 4.8 cm RA ESV A4C (MOD) 36.9mL LV Diastology MV E' medial 0.062 (>0.07 m/s) MV E Vmax 0.83 (0.4-1.3 m/s) MV E/E' MED 13.48 (<14) MV A Vmax 0.90 (0.4-1.3 m/s) MV E' lateral 0.103 (>0.1 m/s) E/A Ratio 0.9 MV E/E' LAT 8.09 (<14) MV E' Average 0.082 m/s MV E/E'(average) 10.11 Aortic Valve AoV Vmax 1.67 m/s LVOT Vmax 0.66 m/s AoV Peak Grad 29.9 mmHg LVOT Peak Grad 1.7 mmHg AoV Area (Vmax) 1.21 cm2 LVOT VTI 0.181 m AoV VTI 0.436 m LVOT Mean Grad 1.1 mmHg AoV Mean Joel. 1.19 m/s LVOT SV 55.61 mL AoV Mean Grad 6.4 mmHg LVOT Diam s 1.95 cm AoV Area (VTI) 1.28 cm2 AV Regurg Peak Gr. 11.11 mmHg Velocity Ratio 0.40 AR Decel [place] 1.4m/sec2 AR DT 2517 msec AR PHT 730 msec AR Vmax 3.49 m/s Mitral Valve MV DT 282 (160-240 msec) MV Vmax TIPS 0.76 m/s MV Mean Grad 1.5 (<2mmHg) MV VTI 0.318 m Pulmonary Valve PV Vmax 1.01 (0.5-1.5 m/s) RVOT Vmax 0.53 m/s PV Peak Grad 4.1 mmHg RVOT Peak Gr. 1.1 mmHg PV Mean Joel 0.68 m/s RVOT VTI 0.156 m PV Mean Grad 2.1 mmHg RVOT Mean Gr. 0.7 mmHg Tricuspid Valve RA Pressure 3.00 mmHg TR Vmax 2.09 m/s TV S' 0.12 m/s TR Peak Grad 17.5 mmHg RVSP (TR) 20.5 mmHg
== END 2024-04-04 01:55 ==
LOC: DI 01:35
PROVIDERS: PCP Internal Medicine Medical Oncology; Visit Provider Surgery
DX: I25.10 Atherosclerotic heart disease of native coronary artery without angina pectoris (principal)
CPT/HCPCS: 93306

== ENCOUNTER 2024-04-11 08:53 | Day surgery (SDC) | payer MEDICARE, OTHER, SELFPAY ==
--- NOTE | 2024-04-10 18:38 | W.PM.DSUDISC ---
Date of service: 04/11/24 Discharge Plan Disposition Patient Disposition: Home Condition: Good Discharge Details Reason For Visit: Spegelian hernia repair Attending Provider: Wesly De Dios Primary Care Provider: Andre Zepeda Home Meds and New Rx's Prescriptions: Continued citalopram 10 mg tablet 10 mg PO DAILY PRN ondansetron HCl 4 mg tablet 8 mg PO Q8H PRN sacubitril-valsartan [Entresto] 24-26 mg tablet 1 tab PO BID glyburide 2.5 mg tablet 2.5 mg PO DAILY metformin 1,000 mg tablet 1,000 mg PO DAILY furosemide 20 mg tablet 20 mg PO DAILY trazodone 100 mg tablet 100 mg PO BID ezetimibe 10 mg tablet 10 mg PO DAILY gabapentin 400 mg capsule 300 mg PO TID sennosides [senna] 8.6 mg tablet 8.6 - 17.2 mg PO BID PRN (Reason: constipation) Qty: 60 0RF fentanyl 50 mcg/hr patch 72 hour 1 patch transdermal Q72H MDD 1 patch Qty: 5 0RF Rx Instructions: For cancer related pain. Dose increase acetaminophen 650 mg suppository 650 mg TN Q6H PRN (Reason: fever, mild pain) Qty: 6 0RF Rx Instructions: Hospice Patient hyoscyamine sulfate 0.125 mg tablet,disintegrating 0.125 - 0.25 mg PO Q4H PRN (Reason: secretions) Qty: 24 0RF Rx Instructions: Hospice Patient haloperidol lactate 2 mg/mL concentrate 1 mg PO Q6H PRN (Reason: agitation) Qty: 15 0RF Rx Instructions: Hospice Patient lorazepam 1 mg tablet 1 mg PO Q4H PRN (Reason: anxiety, FERMIN or nausea) Qty: 6 5RF Rx Instructions: Hospice Patient morphine concentrate 100 mg/5 mL (20 mg/mL) solution 5 - 20 mg PO Q1-4H MDD 5 mL PRN (Reason: moderate to severe pain or shortness of breath) Qty: 30 0RF Rx Instructions: Hospice Patient prochlorperazine maleate 10 mg tablet 10 mg PO Q6H PRN (Reason: nausea and vomiting) Qty: 6 0RF Rx Instructions: Hospice Patient bisacodyl [Dulcolax (bisacodyl)] 10 mg suppository 10 mg TN daily PRN (Reason: constipation) Qty: 2 0RF Rx Instructions: Hospice Patient Insert 1 supp TN Daily PRN constipation (no BM in 3 days) Discharge Instructions Instructions: Abdominal Hernia Repair, Laparoscopic Surgery Additional Instructions: Luc, it was great seeing you today, and I hope you are comfortable during the procedure and that you make a quick recovery. We are able to find, and patch the hernia on the inside just like we talked about beforehand. Everything went very smoothly. I tried to use some long-acting local anesthetic to help provide some relief from the operation. This will start to wear off in the next 24 to 72 hours, so do not be alarmed if the pain increases a little bit during that time. You may see some bruising over the repair site which is on the right side, or at the incisions on the left side. That is extremely common and nothing to be alarmed about. If you notice any foul-smelling drainage coming from the incisions, please let me know. I do not expect that to happen, but I would like to be aware if things start changing. Be careful with the lifting over the next few days, and slowly start to ease back into your regular routine. If you need anything at all, or have any questions, please do not hesitate to call. otherwise, I look forward to seeing you on the at 1 PM in the office 1. Resume all of your regular medications. 2. Use heating pads and ice packs over the incision sites or any areas where you have pain as needed. I typically recommend that patients alternate these about every 15 minutes or so, with about an hour break in between. 3. Alternate [id number] Tylenol and ibuprofen every 6 hours for the first 2 days, then use as needed. It is okay to use your morphine medication at home if needed for more severe pain 4. Leave bandages in place for 24 hours, then remove. 5. Shower with warm soapy water. Pat dry. Use a bandaid if needed to protect your clothing. 6. No soaking or tub baths until I see you in the office. 7. No heavy lifting until I see you in the office. 8. Call the office (or go directly to the emergency room after hours) if you notice any of the following: Develop chills (warm to touch), or if you have a thermometer and your temperature is above 101 Difficulty breathing or difficultly swallowing Persistent vomiting Any bleeding ? exceeding one tablespoon 9. Call your physician if the site where your intravenous was started becomes red, swollen, painful, and warm to touch. 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
--- NOTE | 2024-04-10 18:41 | W.PM.OP ---
Operative Note Operative Note PRE-OP DIAGNOSIS: Spegalian hernia repair POST-OP DIAGNOSIS: same PROCEDURE: Lapraoscopic spegalian herniarepair with mesh SURGEON: Wesly De Dios ATTORNEY GENERAL: Andressa Regalado ANESTHESIA TYPE: General LMA/ETT Refer to Anesthesia Record ESTIMATED BLOOD LOSS: 15 PATHOLOGY: none sent COMPLICATIONS: None Patient was transported to: PACU Patient's condition: stable Implants: Bard Ventrlexz ST 4 cm patch Indications: Luc is an 88-year-old male with a symptomatic spigelian hernia. He is required 2 ER visits for incarceration that required sedation for reduction. Findings: Right lower quadrant spigelian hernia Procedure Description: I met with uLc in the day surgery unit prior to the operation, and reviewed the plan for surgery. He had the chance to ask any other questions that he might have. We then moved back to the operating room, and he was assisted onto the OR table. Great care was taken to make sure that he was padded and supported appropriately. General endotracheal anesthesia was induced. The left arm was gently tucked towards the side, again taking care to make sure that things were padded and supported. I then prepped and draped the anterior abdominal wall. I started with a incision in the left upper quadrant over the area of Russell's point. I anesthetized the skin, made a 5 mm skin incision with a scalpel. I entered the peritoneum under direct vision with a 5 mm optical viewing port. The peritoneum was then insufflated and a 5 mm 30 degree scope was introduced. There was no evidence of any injury from port insertion. We turned our attention to the right lower quadrant, where a hernia defect was clearly observed. Next, with the assistance of the laparoscope, established bilateral tap blocks in the lower portion of the abdomen. I then introduced a 12 mm port in the left lower. The hernia appeared to contain some preperitoneal fat at this time. This was reduced, and the surrounding peritoneum was mobilized and dissected clear this all appeared consistent with spigelian hernia. The hernia defect was about 2 cm in its largest dimension, and when mapped out against the anterior abdominal wall, 4 cm mesh appeared sufficient for adequate overlap. Therefore, the Bard Ventralex ST mesh was introduced through the 12 mm port site, and the echo positioning system was used to bring this up against the anterior abdominal wall obliterating the origin of the spigelian defect. The 4 cardinal points were fixed with the tacking device. Again, the mesh appeared well-seated with excellent overlap of normal tissue. The remainder of the edge of the mesh was affixed in place, and the positioning system was removed. The 12 mm port was removed, and this fascial defect was closed with interrupted Vicryl stitches. Pneumoperitoneum was then evacuated, and the 5 mm port in the left upper quadrant was removed. The incision sites were hemostatic. They were irrigated. The skin was closed with subcuticular stitches, Band-Aids were applied. The patient was then awoken from the anesthetic, extubated, and transferred to the recovery unit. Date of Procedure: 04/11/24
[2024-04-11] VITALS (27 sets, daily range): BP systolic 98–171; BP diastolic 44–88; PULSE 54–71; RESP 9–18; TEMP 36.3–37.2; O2SAT 87–100; BMI 22.2
--- NOTE | 2024-04-11 08:31 | ANES.PREOP_ITS ---
General Info Date of Service Date Performed: 04/11/24 Height: 6 ft Weight: 74.389 kg Body Mass Index (BMI): 22.2 Surgical Procedure: Operation Date: 04/11/24 10:10 Proposed Procedure Side Surgeon p Hernia Spegalian Laparoscopic Right Wesly De Dios MD Meds Allergies and Home Medications Allergies Allergy/AdvReac Type Severity Reaction Status Date / Time ciprofloxacin Allergy Headache Verified 04/11/24 09:32 Home Medication ?Medication ?Instructions ?Recorded citalopram 10 mg tablet 10 mg PO DAILY PRN 03/28/24 ezetimibe 10 mg tablet 10 mg PO DAILY 03/28/24 furosemide 20 mg tablet 20 mg PO DAILY 03/28/24 glyburide 2.5 mg tablet 2.5 mg PO DAILY 03/28/24 metformin 1,000 mg tablet 1,000 mg PO DAILY 03/28/24 ondansetron HCl 4 mg tablet 8 mg PO Q8H PRN 03/28/24 sacubitril 24 mg-valsartan 26 mg 1 tab PO BID 03/28/24 tablet (Entresto) trazodone 100 mg tablet 100 mg PO BID 03/28/24 gabapentin 400 mg capsule 300 mg PO TID 03/29/24 sennosides 8.6 mg tablet (senna) 8.6 - 17.2 mg (1 - 2 x 8.6 mg) PO 03/29/24 BID PRN constipation #60 tabs acetaminophen 650 mg rectal 650 mg MN Q6H PRN fever, mild pain 04/06/24 suppository #6 supp bisacodyl 10 mg rectal suppository 10 mg MN daily PRN constipation #2 04/06/24 (Dulcolax (bisacodyl)) supp fentanyl 50 mcg/hr transdermal 1 patch transdermal Q72H #5 ea 04/06/24 patch haloperidol lactate 2 mg/mL oral 1 mg (0.5 mL) PO Q6H PRN agitation 04/06/24 concentrate #15 mL hyoscyamine sulfate 0.125 mg 0.125 - 0.25 mg (1 - 2 x 0.125 mg) 04/06/24 disintegrating tablet PO Q4H PRN secretions #24 tabs lorazepam 1 mg tablet 1 mg PO Q4H PRN anxiety, FERMIN or 04/06/24 nausea #6 tabs morphine concentrate 100 mg/5 mL 5 - 20 mg (0.25 - 1 mL) PO Q1-4H 04/06/24 (20 mg/mL) oral solution PRN moderate to severe pain or shortness of breath #30 mL prochlorperazine maleate 10 mg 10 mg PO Q6H PRN nausea and 04/06/24 tablet vomiting #6 tabs Current Visit Medications: Current Medications Generic Name Dose Route Start Last Admin Trade Name Freq PRN Reason Stop Dose Admin Acetaminophen 1,000 mg 04/11/24 06:00 Acetaminophen 500 Mg Tab PO 04/11/24 23:59 PREOP RAN Celecoxib 200 mg 04/11/24 06:00 Celecoxib 200 Mg Cap PO 04/11/24 23:59 PREOP RAN Gabapentin 600 mg 04/11/24 06:00 Gabapentin 300 Mg Cap PO 04/11/24 23:59 PREOP RAN Hydromorphone HCl 0.2 mg 04/10/24 18:43 Hydromorphone 1 Mg/Ml Syr IVP 05/10/24 18:42 Q1H PRN PRN Cefazolin Sodium/Dextrose 2 gm in 50 mls @ 100 mls/hr 04/11/24 06:00 Ancef Duplex IVPB 04/11/24 23:59 PREOP RAN IV Miscellaneous Supplies 1 each 04/11/24 06:00 Iv Access IV 04/11/24 23:59 DIRECTED RAN Sodium Chloride 0 ml 04/11/24 06:00 Normal Saline Flush 10 Ml Syr IV 04/11/24 23:59 PRN PRN Sodium Chloride 0 ml 04/11/24 06:00 Normal Saline 10 Ml Vial IJ 04/11/24 23:59 DIRECTED PRN Sterile Water 0 ml 04/11/24 06:00 Water,Injection,Sterile 10 Ml Vial IJ 04/11/24 23:59 DIRECTED PRN Tramadol HCl 50 mg 04/10/24 18:43 Tramadol 50 Mg Tab PO 05/10/24 18:42 Q6H PRN PRN Pain PFSH Active Problems Active Problems: Problem Status Onset Code Palliative care patient Acute Z51.5 Cancer-related pain Acute G89.3 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 Medical History Medical History (Updated 04/10/24 @ 12:59 by Francisco J Lange) Arrhythmia a-fib per dtr Neuropathy Cardiac defibrillator in place Per dtr: [employer] Placed: 08/2020 For: Afib Hyperlipidemia Diabetes NSCLC of right lung Pelvic mass 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 Surgical History Surgical History H/O shoulder replacement History of transurethral resection of bladder tumor (TURBT) 04/07/2023 Tobacco Smoking/Tobacco Use Status: Former Tobacco Use Alcohol Alcohol Intake: never Substance Use Substance use: Never Substance use type: does not use Vital Signs and Lab Results Vital Signs Most Recent Vital Signs in EMR: Temp Pulse Resp BP Pulse Ox 36.6 C 62 14 126/58 L 97 04/11/24 09:19 04/11/24 09:19 04/11/24 09:19 04/11/24 09:19 04/11/24 09:19 Lab Results Blood Type / Crossmatch: Antibody Screen NEGATIVE 03/31/24 Complete Blood Count: White Blood Count 7.07 10^3/uL (4.4-10.8) 03/31/24 16:08 Red Blood Count 3.44 10^6/uL (4.36-5.78) L 03/31/24 16:08 Hemoglobin 11.3 g/dL (13.5-17.5) L 03/31/24 16:08 Hematocrit 35.8 % (40.0-50.0) L 03/31/24 16:08 Platelet Count 237 10^3/uL (130-400) 03/31/24 16:08 Venous Blood Lactate 0.9 mmol/L (0.6-1.4) 03/31/24 18:53 Complete Metabolic Panel: Sodium 142 mmol/L (136-145) 03/31/24 16:08 Potassium 4.5 mmol/L (3.5-5.1) 03/31/24 16:08 Chloride 105 mmol/L (98-107) 03/31/24 16:08 Carbon Dioxide 27.4 mmol/L (21.0-32.0) 03/31/24 16:08 BUN 18 mg/dL (7-18) 03/31/24 16:08 Creatinine 1.5 mg/dL (0.70-1.30) H 03/31/24 16:08 Est GFR (CKD-EPI 2020) 45.06 (mL/min/1.73m2) 03/31/24 16:08 Magnesium 1.8 mg/dL (1.8-2.4) 03/31/24 16:08 Calcium 9.0 mg/dL (8.5-10.1) 03/31/24 16:08 Albumin 3.5 g/dL (3.4-5.0) 03/31/24 16:08 Glucose 178 mg/dL (74-106) H 03/31/24 16:08 Liver Function Panel: Alanine Aminotransferase (ALT/SGPT) 16 U/L (16-63) 03/31/24 16: 08 Aspartate Amino Transf (AST/SGOT) 18 U/L (15-37) 03/31/24 16:08 Coagulation Panel: No Data to Display Cardiac Panel: No Data to Display Arterial Blood Gas: No Data to Display Venous Blood Gas: Venous Blood pH 7.28 (7.31-7.41) L 03/31/24 16:08 Venous Blood Partial Pressure O2 25 mmHg 03/31/24 16:08 Venous Blood Partial Pressure CO2 55 mmHg (41-51) H 03/31/24 16 :08 Venous Blood Oxygen Saturation 39 % 03/31/24 16:08 Venous Blood HCO3 26 mmol/L (23-28) 03/31/24 16:08 Venous Blood Base Excess -1 mmol/L (-2-3) 03/31/24 16:08 Venous Blood Total Carbon Dioxide 25 mmol/L (24-29) 03/31/24 16 :08 Pancreas Panel: Lipase 16 U/L (<78) 03/31/24 16:08 Thyroid Panel: No Data to Display Infectious Disease: No Data to Display Blood Cultures: No Data to Display Toxicology Panel: No Data to Display Imaging and Studies Imaging and Studies Study information below may be from another EMR and interpreted by another provider. Please see original notes in EMR for more complete details. EKG Summary: EKG PATIENT NAME: Luc Floyd UNIT #: [id number] ORDERING PROVIDER: Amada Lopez M.D. PRIMARY CARE PROVIDER: LANI HOOPER MD DATE/TIME OF SERVICE: 03/31/24 7214 : 1935 PERFORMING LOCATION: [place] APPROVED REPORT Exam: Resting ECG Reason for Exam: pre procedure Patient Location: E HR:65 bpm ECG Measurements Heart Rate 65 AXIS MN 190 P 67 QRSd 95 QRS 42 QT 457 T55 QTc 475 Conclusion sinus rythym bordlerline prolonged QTc no ST segement or T wave abnormalities to suggest occlusive VA <Electronically signed by Amada Lopez M.D. in OV> E-Sign Date: 03/31/24 E-Sign Time: 1938 ADDENDUM APPROVED REPORT Exam: Resting ECG Reason for Exam: pre procedure Patient Location: E HR:65 bpm ECG Measurements Heart Rate 65 AXIS MN 190 P 67 QRSd 95 QRS 42 QT 457 T55 QTc 475 Conclusion sinus rythym bordlerline prolonged QTc no ST segement or T wave abnormalities to suggest occlusive VA I have reviewed and I agree with the emergency room physician's ECG interpretation. Electronically signed by: <Electronically signed by Juany Venegas M.D. in OV> 04/03/24 0830 Cosigned by: Echocardiogram Summary: Patient Name: Luc Floyd Unit #: [id number] Loc: DI Ordering Provider: Wesly De Dios M.D. Status: REG [facility] Primary Care Provider: Andre Zepeda Date of Exam: 04/04/24 Sex: M Admission Date: 04/04/24 : 1935 Age: 88 APPROVED REPORT EXAM: Comprehensive 2D, Doppler, and color-flow Echocardiogram Patient Location: Out-Patient Letter Of Credit Document Examiner: Betty Ferrer RDCS (AE) Indications: Preoperative risk stratification, H/O A fib with CAD Other Information Study Quality: Adequate Conclusion Normal left ventricular wall thickness. Mildly dilated left ventricle. Ejection fraction is 45 to 50%. There is inferior hypokinesis Normal right ventricular size and function Device lead noted in the right heart Normal right atrial size. Mildly enlarged left atrium The aortic valve is mildly sclerotic and trileaflet with mild regurgitation Mild mitral annular calcification. There is mild to moderate eccentric mitral regurgitation Mild tricuspid regurgitation. Estimated right ventricular systolic pressure is 20 mmHg Wall motion Left Ventricle Left ventricle is mildly dilated. Left ventricular systolic function is mildly decreased. There is normal left ventricular wall thickness. Regional wall motion abnormalities are noted. There is no ventricular septal defect visualized. LVEF is 45-50%. Right Ventricle Right ventricle is grossly normal in size. Right ventricular systolic function is grossly normal. Device lead is present in the right ventricle. Defibrilator Atria Left atrium is mildly dilated. The right atrium size is normal. The interatrial septum is intact with no evidence for an atrial septal defect. Aortic Valve The aortic valve is mildly sclerotic Aortic valve is trileaflet. There is no aortic valvular stenosis. Mild aortic regurgitation. Mitral Valve Mild mitral annular calcification. No evidence of mitral valve stenosis. Mild to moderate mitral regurgitation. Mitral regurgitation jet is eccentrically directed. Tricuspid Valve The tricuspid valve is normal in structure. There is no tricuspid valve stenosis. Mild tricuspid regurgitation. The RVSP is 20.5 mmHg. Pulmonic Valve The pulmonary valve is normal in structure. There is no pulmonic valvular stenosis. Trace pulmonic regurgitation. Great Vessels The aortic root is normal in size. The ascending aorta is mildly dilated. Aortic arch is not well visualized. IVC is normal in size and collapses >50% with inspiration. Pericardium There is no pericardial effusion. 2D Dimensions IVSD d PLAX 0.80 cm M: 0.6-1.2Ao Root d 2.99 cm M: 3.1 - 3.7 LVPW d PLAX 0.84 cm M: 0.6 - 1.2Ao Asc Diam d 3.52 cm M: 2.6 - 3.4 LVID d PLAX 6.10 cm M: 4.2 - 5.8 LV EF Teichholz 28.1 % LV EDV (Teich)187.0 mL M-Mode TAPSE 2.50 cm (M/F) >1.7 Auto EF LV EDV [id number] mLLV EDV C3C094.0 mLLV EDV BP164.3 mL LV ESV A4C83.3 mLLV ESV A2C92.0 mLLV ESV BP89.3 mL LVEF(%) A4C47.8 %LVEF(%) A2C44.6 %LVEF(%) BP45.7 % LV SV A4C76.4 mlLV SV A2C74.0 mlLV SV BP75.0 ml LV CO A4C4.8 L/minLV CO A2C4.9 L/minLV CO BP4.8 L/min HR A4C62.18 BPMHR A2C66.55 BPMLV EDV Index (BP) LV Strain Long Pk Overal Avg (s) 15.89 LA Volume LA Length A4C5.6 cmLA Length A2C5.4 cm LA Area A4C s 21.48 cm2LA Area A2C s 22.06 cm2 LA Vol A4C A-L70.40 mLLA Vol A2C A-L76.65 mLLA Vol Biplane A-L74.6 mL LA Vol/BSA A4C A-LLA Vol/BSA A2C A-LLA Vol/BSA BP A-L 38.1 mL/m2 LA Vol A4C MOD62.8 mLLA Vol A2C MOD72.3 mLLA Vol BP MOD68.1 mL RA Volume RA Area A4C14.5 cm2RA ESV A4C (A-L)37.5mLRA Vol/BSA A4C A-L RA Length A4C4.8 cmRA ESV A4C (MOD)36.9mL LV Diastology MV E' medial0.062 (>0.07 m/s)MV E Vmax 0.83 (0.4-1.3 m/s) MV E/E' MED13.48 (<14)MV A Vmax 0.90 (0.4-1.3 m/s) MV E' lateral0.103 (>0.1 m/s)E/A Ratio 0.9 MV E/E' LAT8.09 (<14) MV E' Average0.082 m/s MV E/E'(average)10.11 Aortic Valve AoV Vmax1.67 m/sLVOT Vmax 0.66 m/s AoV Peak Grad29.9 mmHgLVOT Peak Grad 1.7 mmHg AoV Area (Vmax)1.21 [id number] VTI0.181 m AoV VTI0.436 mLVOT Mean Grad 1.1 mmHg AoV Mean Joel.1.19 m/sLVOT SV 55.61 mL AoV Mean Grad6.4 mmHgLVOT Diam s 1.95 cm AoV Area (VTI)1.28 cm2AV Regurg Peak Gr.11.11 mmHg Velocity Ratio 0.40 AR Decel Slope1.4m/sec2 AR DT 2517 msec AR PHT 730 msec AR Vmax 3.49 m/s Mitral Valve MV DT 282 (160-240 msec) MV Vmax TIPS 0.76 m/s MV Mean Grad 1.5 (<2mmHg) MV VTI 0.318 m Pulmonary Valve PV Vmax 1.01 (0.5-1.5 m/s)RVOT Vmax 0.53 m/s PV Peak Grad 4.1 mmHgRVOT Peak Gr.1.1 mmHg PV Mean Vel0.68 m/sRVOT VTI0.156 m PV Mean Grad 2.1 mmHgRVOT Mean Gr.0.7 mmHg Tricuspid Valve RA Pressure 3.00 mmHgTR Vmax 2.09 m/s TV S'0.12 m/sTR Peak Grad 17.5 mmHg RVSP (TR) 20.5 mmHg Ordered By: Wesly De Dios M.D. CC: Dictated By: Juany Venegas M.D. 04/04/24 988 <Electronically signed by Juany Venegas M.D. in [place]> 04/05/24 0855 Transcribed By: Juany Venegas MD 04/04/241551 This is privileged, confidential information intended only for the provider named. Any use or distribution by any person other than this provider is strictly prohibited. If you receive this report in error, please notify us immediately at [phone] and return the original report to us at the address above. Thank-you. Anesthesia Assessment and Plan Anesthesia History Personal History: No History of Anesthesia Complications Family History: No Family History of Anesthesia Complications Exercise Tolerance Exercise Tolerance: Metabolic Equivalents>4 Pertinent Negatives Pertinent Negatives: No Major Pulmonary Symptoms or Complaints and No History of CVA/TIA Cardiac & Pulmonary Exam Cardiac Exam: Normal S1/S2 Heart Sounds Pulmonary Exam: Clear Bilateral Breath Sounds Implantable Cardiac Device Does patient have a Pacemaker or an ICD?: Yes Device Assembler Installer General:: [employer] Reason for Placement:: Afib Date of Last Device Interrogation:: Unknown per dtr. ok'd per anes AF Airway Exam Known Difficult Airway: No Mallampati Class: 2 Mouth Opening: Normal (> 3cm) Thyromental Distance: Greater than 3 cm Neck Range of Motion: Full ROM Neck Circumference: Normal Teeth Condition: Removable Dentures/Plates Upper and Removable Dentures/Plates Lower ASA Classification ASA Score: ASA 4 (Palliative care case) Emergency Case?: No NPO Status NPO Status: NPO Clears >2 hours, Solids >8 hours Anesthesia Plan Resuscitation Status: Full Code Anesthesia Technique: General Anesthesia Airway Planned: Endotracheal Tube Monitors Used: Standard Monitors, Arterial Line (As necessary) and SedLine Preoperative Comments:: Discussed additional risk and palliative nature of case. Patient agreed to proceed. Midline as necessary
[2024-04-11] MEDS: Gabapentin 300 MG CAP 600 MG PO (09:42)
[2024-04-11] MEDS: Acetaminophen 500 MG TAB 1000 MG PO (09:42)
[2024-04-11] MEDS: Celecoxib 200 MG CAP PO (09:43)
[2024-04-11] MEDS: Normal Saline 1,000 ML 30 ML IV (10:10)
[2024-04-11] MEDS: ceFAZolin 2 GM/50 ML BAG IVPB (10:26)
[2024-04-11] MEDS: Bupivacaine 0.25% Pres-Free 30 ML VIAL (10:50)
[2024-04-11] MEDS: Normal Saline 20 ML VIAL (10:52)
[2024-04-11] MEDS: Bupivacaine LIPOSOME/PF 133 MG/10 ML VIAL IJ (10:52)
[2024-04-11] MEDS: fentaNYL 100 MCG/2 ML VIAL IVP ×2 (11:54→12:05)
[2024-04-11] MEDS: traMADol 50 MG TAB PO (13:01)
--- NOTE | 2024-04-11 15:28 | W.ANESPOSTOP ---
Postoperative Evaluation Date, Time and Location Date Performed: 04/11/24 Time Performed: 15:28 Patient Location: Day Surgery Unit Vital Signs Most Recent Imported Vital Signs: Most Recent Vital Signs Temp Pulse Resp BP Pulse Ox 36.4 C L 58 L 16 115/62 95 04/11/24 13:32 04/11/24 13:32 04/11/24 13:32 04/11/24 13:32 04/11/24 13:38 Pain Score Most Recent Pain Score: Most Recent Pain Score Pain Level 3 04/11/24 13:32 Assessment Mental Status: Awake (Alert & Oriented to Patient Baseline) Airway and Respiratory Function: Patent airway with normal (patient baseline) respiratory exam Cardiovascular Function: Hemodynamically Stable Hydration Status: Adequately Hydrated Nausea & Vomiting: No Nausea or Vomiting Pain: Pain is tolerable per patient Peripheral Nerve Block: Patient did not receive a nerve block
== END 2024-04-11 14:07 | disposition home or self-care (01) ==
LOC: SUR 08:54
PROVIDERS: PCP Internal Medicine Medical Oncology; Visit Provider Surgery
PROC: (CPT 49650; principal; 2024-04-11 10:00)
DX: K43.9 Ventral hernia without obstruction or gangrene (principal)
CPT/HCPCS: 49591; C1781; C9290; J0665; J0690; J2003; J2405; J2704; J3010

== ENCOUNTER → 2024-04-24 12:52 | Outpatient (BNVA) | payer MEDICARE, OTHER, SELFPAY | PROVIDERS: PCP Internal Medicine Medical Oncology; Referring Provider Internal Medicine Medical Oncology; Visit Provider Surgery | DX: Z48.817 Encounter for surgical aftercare following surgery on the skin and subcutaneous tissue (principal) ==